=== PATIENT | male | born 1995 | race Caucasian/White ===

== ENCOUNTER 2017-07-29 16:13 | Emergency (ER) | payer OTHER, MEDICAID ==
[~2017-07-29] VITALS: Ht 177.8 cm; Wt 56.0 kg
[~2017-07-29 16:13] MED LIST: ATIVAN0.5 M1 PO; BACLOFEN10 MG PO; COLACE100 MG PO; CRANBERRY250 MG PO; DIFLUCAN200 MG PO; DIL4 PO; FAMOTIDINE20 MG PO; KEPPRA250 MG PO; KEPPRA500 MG PO; LEVETIRACETAM500 M2 PO; METOPROLOL SUC100 M2 PO; MULTIVITAMIN1 SGL PO; NEU300 PO; NOR10T PO; NYSTATIN100000 U/M; TIZANIDINE HCL4 MG PO; TRAMADOL HCL50 MG PO; ZOF4 PO
[2017-07-29 19:51] LABS: BASOPHIL % 0.6 % (0-2); PLATELET COUNT 133 x10^3mcL (130-400); RED CELL DISTRIBUTION WIDTH 12.9 % (11.5-14.5)
[2017-07-29 20:01] LABS: CALCIUM 9.2 mg/dL (8.5-10.1); CHLORIDE SERUM 104 mmol/L (98-107); CREATININE SERUM 0.8 mg/dL (0.7-1.3); GFR1 > 60 mL/min; GLUCOSE SERUM 89 mg/dL (74-106); SODIUM SERUM 143 mmol/L (136-145)
[2017-07-29 20:13] LABS: ALBUMIN 4.1 g/dL (3.4-5.0); ALKALINE PHOSPHATASE 74 U/L (46-116); ALT/SGPT 24 U/L (16-63); AST/SGOT 19 U/L (15-37); BILIRUBIN TOTAL 0.32 mg/dL (0.20-1.00)
[2017-07-29 20:41] LABS: CK-MB 4.6 ng/mL (0-3.6)
[2017-07-29 21:22] LABS: UA SPECIFIC GRAVITY 1.015 (1.005-1.035); microscopic required? YES; urine erythrocyte NEGATIVE (NEGATIVE)
[2017-07-29 22:26] VITALS: BP 122/82
== END 2017-07-29 22:26 | disposition home or self-care (01) ==
LOC: ED 16:13
PROVIDERS: Emergency Medicine
DX: R56.9 Unspecified convulsions (principal); I10 Essential (primary) hypertension
CPT/HCPCS: 83880; J7030; Q0092